=== PATIENT | male | born 1945 | race Caucasian/White ===

== ENCOUNTER 2017-06-26 13:46 | Inpatient (IN) | payer OTHER ==
[~2017-06-26] VITALS: Ht 175.3 cm; Wt 150.0 kg
[2017-06-26] MEDS ORDERED: SODIUM CHLORIDE 0.9% 500ML 500 ML IV STA (14:15)
[2017-06-26] MEDS ORDERED: OXYCODONE HCL IR 5 MG TAB (IMMEDIATE RELEASE) PO STA (14:15)
--- NOTE | 2017-06-26 14:18 | EMERGENCY ROOM VISIT NOTE ---
History Report prepared by Ernst: Duane Lyle Under the Supervision of: Dr. Jose Amos D.O. First contact with patient: 14:02 Chief Complaint: HEADACHE Stated Complaint: REVELES, CELLULITIS HX: 5 STENTS History of Present Illness The patient is a 71 year old male who presents to the Emergency Room with complaints of right lower extremity cellulitis that began this morning. He rates his burning sensation a 6/10 in severity. He noticed some burning and redness to his leg this morning. He is also experiencing a headache which is abnormal for him. He notes that last night he had some nausea and vomiting, but none today. He notes no change to his baseline chest pain and shortness of breath. He went to the [facility], told he had a fever and cellulitis , and was referred here. He has a past medical history of previous heart attacks , heart stents, cellulitis, HTN, GERD, hyperlipidemia, and gout. The last time he had cellulitis, it was treated with antibiotics. Source of History: patient Onset: this morning Position: leg (right) Symptom Intensity: 6/10 Quality: burning Timing: constant Associated Symptoms: + fevers, No chest pain, No SOB, No nausea, No vomiting Review of Systems See HPI for pertinent positives & negatives. A total of 10 systems reviewed and were otherwise negative. Past Medical & Surgical Medical Problems: (1) Atrial fibrillation with RVR (2) Cellulitis (3) Cellulitis (4) GERD (gastroesophageal reflux disease) (5) Gout (6) HLD (hyperlipidemia) (7) HTN (hypertension) Surgical Problems: (1) History of heart attack (2) Hx of heart artery stent Family History Omitted secondary to the patient's age. Social History Smoking Status: Never Smoker Smokeless Tobacco Use: No Drug Use: none Occupation Status: employed Current/Historical Medications Scheduled Allopurinol (Zyloprim), 100 MG PO QAM Aspirin (Aspirin Ec), 81 MG PO QAM Atorvastatin (Lipitor), 40 MG PO QAM Colchicine (Colcrys), 0.6 MG PO QAM Lisinopril (Zestril), 10 MG PO QAM Metoprolol Tartrate (Lopressor) (Lopressor), 50 MG PO BID Nitroglycerin (Nitrostat), 1 TAB SL UD Pantoprazole (Protonix), 40 MG PO QAM Probiotic Product (Probiotic), 4 TAB PO QAM Thiamine Hcl (Vitamin B-1), 100 MG PO QAM Miscellaneous Medications Furosemide (Lasix), 40 MG PO Warfarin Sod (Coumadin), 5 MG Allergies Coded Allergies: Ciprofloxacin (Verified Allergy, Intermediate, RASH, 06/26/17) Amoxicillin (Verified Allergy, Unknown, RASH, 06/26/17) Clavulanic Acid (Verified Allergy, Unknown, RASH, 06/26/17) Physical Exam Vital Signs Date Time Temp Pulse Resp B/P (MAP) Pulse Ox O2 Delivery O2 Flow Rate FiO2 06/26/17 17:33 92 18 145/91 95 Room Air 06/26/17 16:12 107 18 135/88 96 Room Air 06/26/17 14:49 107 06/26/17 13:59 37.4 106 20 125/79 96 Room Air Physical Exam GENERAL: Patient is awake, alert, and in no acute distress. Patient is resting comfortably and showing no signs of anxiety EYES: The conjunctivae are clear. The pupils are round and reactive. EARS, NOSE, MOUTH AND THROAT: The nose is without any evidence of any deformity. Mucous membranes are moist tongue is midline NECK: The neck is nontender and supple. RESPIRATORY: Lung sounds diminished to bilateral bases. No tachypnea or conversational dyspnea. CARDIOVASCULAR: Irregular rhythm to auscultation with no definite murmurs rubs or gallops normal S1 normal S2 GASTROINTESTINAL: The abdomen is soft. Bowel sounds are present in all quadrants. Abdomen is nontender MUSCULOSKELETAL/EXTREMITIES: There is no evidence of gross deformity full range of motion is noted in the hips and shoulders SKIN: Erythema and swelling to the RLE with the appearance of cellulitis. Pedal edema bilaterally, right greater than left. No calf tenderness elicited. There are no petechiae, pallor or cyanosis noted. NEUROLOGIC: Patient is awake alert and oriented x3 strength is symmetric patellar reflexes are 2+ bilaterally Medical Decision & Procedures ER Provider Diagnostic Interpretation: Radiology results as stated below per my review and radiologist interpretation: RIGHT LOWER EXTREMITY VENOUS DOPPLER CLINICAL HISTORY: Right lower extremity swelling. COMPARISON STUDY: No previous studies for comparison. TECHNIQUE: Sonography of the deep venous system of the right lower extremity was performed. Compression and augmentation were evaluated. FINDINGS: The right common femoral, superficial femoral and popliteal veins were compressible. Augmentation was normal. Flow was shown within the deep calf vessels although calf vessels were suboptimally assessed due to suboptimal penetration. IMPRESSION: No evidence of deep venous thrombus within the right lower extremity although calf vessels difficult to assess due to suboptimal penetration. Electronically signed by: Dawson Eckert M.D. 06/26/2017 3:53 PM Dictated Date/Time: 06/26/2017 3:[address] OF THE HEAD WITHOUT CONTRAST CLINICAL HISTORY: Headache. COMPARISON STUDY: No previous studies for comparison. CT DOSE: 1031.97 mGy.cm TECHNIQUE: Helical axial images of the head were obtained without IV contrast. Automated exposure control was utilized for the study. A dose lowering technique was utilized adhering to the principles of ALARA. FINDINGS: No acute intracranial hemorrhage, midline shift or mass effect is present. Ventricular system is unremarkable. Basilar cisterns are patent. This study is mildly compromised by motion artifact. There are no findings to suggest acute dural sinus thrombosis or acute territorial infarct. There are no significant calvarial abnormalities. Visualized portions of the sinuses and mastoid air cells are clear. IMPRESSION: 1. No acute intracranial findings. 2. Study mildly compromised by motion artifact. Electronically signed by: Dawson Eckert M.D. 06/26/2017 3:44 PM Dictated Date/Time: 06/26/2017 3:42 PM CHEST 2 VIEWS ROUTINE CLINICAL HISTORY: Fever. Sepsis. COMPARISON STUDY: No previous studies for comparison. FINDINGS: Lung volumes are normal. Lower mediastinal contour abnormality is nonspecific but favors a large hiatal hernia. There is no evidence of pulmonary edema. Right pleural opacity may reflect extrapleural fat. There is no evidence of pulmonary edema. Moderate enlargement of the cardiac silhouette is noted. IMPRESSION: 1. Lower mediastinal contour abnormality. While nonspecific, this statistically reflects a large lateral hernia. 2. Cardiomegaly without evidence of pulmonary edema. 3. No consolidation to suggest pneumonia. Electronically signed by: Dawson Eckert M.D. 06/26/2017 3:49 PM Dictated Date/Time: 06/26/2017 3:48 PM Laboratory Results 06/26/17 14:35 Red Blood Count 4.75, Mean Corpuscular Volume 83.4, Mean Corpuscular Hemoglobin 27.6, Mean Corpuscular Hemoglobin Concent 33.1, Mean Platelet Volume 10.7, Neutrophils (%) (Auto) 91.8, Lymphocytes (%) (Auto) 1.9, Monocytes (%) (Auto) 5.8, Eosinophils (%) (Auto) 0.0, Basophils (%) (Auto) 0.1, Neutrophils # (Auto) 22.67, Lymphocytes # (Auto) 0.48, Monocytes # (Auto) 1.44, Eosinophils # (Auto) 0.00, Basophils # (Auto) 0.02 06/26/17 14:35 Test 06/26/17 14:35 06/26/17 14:46 06/26/17 15:09 White Blood Count 24.72 K/uL (4.8-10.8) Red Blood Count 4.75 M/uL (4.7-6.1) Hemoglobin 13.1 g/dL (14.0-18.0) Hematocrit 39.6 % (42-52) Mean Corpuscular Volume 83.4 fL (80-100) Mean Corpuscular Hemoglobin 27.6 pg (25-34) Mean Corpuscular Hemoglobin Concent 33.1 g/dl (32-36) Platelet Count 217 K/uL (130-400) Mean Platelet Volume 10.7 fL (7.4-10.4) Neutrophils (%) (Auto) 91.8 % Lymphocytes (%) (Auto) 1.9 % Monocytes (%) (Auto) 5.8 % Eosinophils (%) (Auto) 0.0 % Basophils (%) (Auto) 0.1 % Neutrophils # (Auto) 22.67 K/uL (1.4-6.5) Lymphocytes # (Auto) 0.48 K/uL (1.2-3.4) Monocytes # (Auto) 1.44 K/uL (0.11-0.59) Eosinophils # (Auto) 0.00 K/uL (0-0.5) Basophils # (Auto) 0.02 K/uL (0-0.2) RDW Standard Deviation 52.5 fL (36.4-46.3) RDW Coefficient of Variation 17.1 % (11.5-14.5) Immature Granulocyte % (Auto) 0.4 % Immature Granulocyte # (Auto) 0.11 K/uL (0.00-0.02) Red Blood Cell Morphology Unremarkable Erythrocyte Sedimentation Rate 46 mm/hr (0-14) Prothrombin Time 34.6 SECONDS (9.0-12.0) Prothromb Time International Ratio 3.1 (0.9-1.1) Activated Partial Thromboplast Time 39.9 SECONDS (21.0-31.0) Partial Thromboplastin Ratio 1.5 Anion Gap 7.0 mmol/L (3-11) Est Creatinine Clear Calc Drug Dose 70.1 ml/min Estimated GFR () 58.2 Estimated GFR (Non- 50.2 BUN/Creatinine Ratio 17.1 (10-20) Calcium Level 9.2 mg/dl (8.5-10.1) Total Bilirubin 0.9 mg/dl (0.2-1) Direct Bilirubin 0.2 mg/dl (0-0.2) Aspartate Amino Transf (AST/SGOT) 18 U/L (15-37) Alanine Aminotransferase (ALT/SGPT) 23 U/L (12-78) Alkaline Phosphatase 143 U/L (45-117) Troponin I < 0.015 ng/ml (0-0.045) C-Reactive Protein 6.98 mg/dl (0-0.29) Total Protein 7.8 gm/dl (6.4-8.2) Albumin 3.6 gm/dl (3.4-5.0) Bedside Lactic Acid Venous 2.58 mmol/L (0.90-1.70) Urine Color YELLOW Urine Appearance CLEAR (CLEAR) Urine pH 5.5 (4.5-7.5) Urine Specific Brinson 1.012 (1.000-1.030) Urine Protein NEG (NEG) Urine Glucose (UA) NEG (NEG) Urine Ketones NEG (NEG) Urine Occult Blood 2+ (NEG) Urine Nitrite NEG (NEG) Urine Bilirubin NEG (NEG) Urine Urobilinogen NEG (NEG) Urine Leukocyte Esterase NEG (NEG) Urine WBC (Auto) 0 /hpf (0-5) Urine RBC (Auto) 5-10 /hpf (0-4) Urine Hyaline Casts (Auto) 0 /lpf (0-5) Urine Epithelial Cells (Auto) 0-5 /lpf (0-5) Urine Bacteria (Auto) NEG (NEG) Laboratory results per my review. Medications Administered Medications (Trade) Dose Ordered Sig/Alexa Route Start Time Stop Time Status Last Admin Dose Admin Oxycodone HCl (Roxicodone Immediate Rel Tab) 5 mg NOW STAT PO 06/26/17 14:15 8/19/17 14:17 DC 06/26/17 14:40 5 MG Sodium Chloride 500 ml @ 999 mls/hr Q31M STAT IV 06/26/17 14:15 06/26/17 14:45 DC 06/26/17 14:42 999 MLS/HR Ceftriaxone Sodium (Rocephin Inj) 1 gm NOW STAT IV 06/26/17 15:35 06/26/17 15:36 DC 06/26/17 16:15 1 GM ECG Indication: other (Infection) Rate (beats per minute): 106 Rhythm: atrial fibrillation Findings: other (No PVCs or acute STS) Comparison ECG Date: no prior available ED Course 1402: The patient was evaluated in room C3. A complete history and physical examination were performed. 1415: Ordered NSS 500 ml @ 999 mls/hr IV, Oxycodone HCl 5 mg PO 1535: Ordered Rocephin Inj 1 gm IV 1700: Upon reevaluation, the patient is resting. I discussed results and treatment plan with him. He verbalizes agreement and understanding. [facility] The patient will be evaluated for further management and care. Medical Decision Differential diagnosis: Etiologies such as cellulitis, abscess, MRSA infection, DVT, necrotizing fasciitis, dermatitis, drug eruption, as well as others were entertained.. Nursing notes reviewed. The patient is a 71-year-old male who presented to the emergency department for an evaluation of right lower extremity swelling and redness. The patient's physical exam appears to be consistent with cellulitis. He has had cellulitis in the past. He was also found have an elevated white blood cell count as well as increased inflammatory markers. The patient was treated with IV fluids and IV antibiotics in emergency department. He was also given pain medication. I discussed patient's laboratory and radiographic studies with him. I also discussed this [facility] They've agreed to evaluate the patient in the emergency department for further management and disposition. Medication Reconcilliation Current Medication List: was personally reviewed by me Blood Pressure Screening Patient's blood pressure: Normal blood pressure Blood pressure disposition: Did not require urgent referral Consults Time Called: 1655 Consulting Physician: [facility]. Lopez [facility] Returned Call: 1700 I discussed the patient's case with him. The patient will be evaluated for further management. Impression Primary Impression: Cellulitis of right lower extremity Additional Impression: Atrial fibrillation Scribe Attestation The scribe's documentation has been prepared under my direction and personally reviewed by me in its entirety. I confirm that the note above accurately reflects all work, treatment, procedures, and medical decision making performed by me. Departure Information Dispostion Being Evaluated By Hospitalist Prescriptions Metoprolol Tartrate (Lopressor) (Lopressor) 25 Mg Tab 50 MG PO BID for 30 Days, #120 TAB Prov: Tono Lopez, DO 06/26/17 Referrals No Doctor, Assigned (PCP) Patient Instructions My [facility] Problem Qualifiers Additional Impression: Atrial fibrillation Atrial fibrillation type: unspecified Qualified Codes: I48.91 - Unspecified atrial fibrillation
[2017-06-26 15:00] LABS: HEMATOCRIT 39.6 % (42-52); MEAN CELL VOLUME 83.4 fL (80-100); MEAN CORPUSCULAR HEMOGLOBIN 27.6 pg (25-34); MEAN CORPUSCULAR HGB CONC 33.1 g/dl (32-36); MEAN PLATELET VOLUME 10.7 fL (7.4-10.4); PLATELET COUNT 217 K/uL (130-400); RED BLOOD COUNT 4.75 M/uL (4.7-6.1); WHITE BLOOD COUNT 24.72 K/uL (4.8-10.8)
[2017-06-26 15:08] LABS: INR 3.1 (0.9-1.1); PARTIAL THROMBOPLASTIN RATIO 1.5; PROTHROMBIN TIME (PATIENT) 34.6 SECONDS (9.0-12.0)
[2017-06-26 15:17] LABS: BLOOD UREA NITROGEN 24 mg/dl (7-18); GLUCOSE 113 mg/dl (70-99)
[2017-06-26 15:18] LABS: ALT/SGPT 23 U/L (12-78); BUN/CREATININE RATIO 17.1 (10-20); C-REACTIVE PROTEIN 6.98 mg/dl (0-0.29); CALCIUM 9.2 mg/dl (8.5-10.1); CARBON DIOXIDE 27 mmol/L (21-32); CHLORIDE 101 mmol/L (98-107); SODIUM 135 mmol/L (136-145)
[2017-06-26 15:22] LABS: ALKALINE PHOSPHATASE 143 U/L (45-117); AST/SGOT 18 U/L (15-37)
[2017-06-26 15:23] LABS: URINE APPEARANCE CLEAR (CLEAR); URINE BILIRUBIN NEG (NEG); URINE COLOR YELLOW; URINE EPITHELIAL CELL AUTO 0-5 /lpf (0-5); URINE NITRITE NEG (NEG); URINE PH 5.5 (4.5-7.5); URINE SPECIFIC GRAVITY 1.012 (1.000-1.030); UROBILINOGEN NEG (NEG)
[2017-06-26 15:25] LABS: MANUAL MICROSCOPIC REQUIRED? NO; REVIEW REQ? NO
[2017-06-26] MEDS ORDERED: ALLO100T PO (15:29)
[2017-06-26] MEDS ORDERED: METO25TA56 PO ×2 (15:29→17:19)
[2017-06-26] MEDS ORDERED: ATOR-24 PO (15:29)
[2017-06-26] MEDS ORDERED: THIA100T11 PO (15:29)
[2017-06-26] MEDS ORDERED: PANT40TA PO (15:29)
[2017-06-26] MEDS ORDERED: ASPI81TA28 PO (15:29)
[2017-06-26] MEDS ORDERED: CLC6 PO (15:29)
[2017-06-26] MEDS ORDERED: LISI-729 PO (15:29)
[2017-06-26] MEDS ORDERED: MISCCAP80 PO (15:29)
[2017-06-26 15:33] LABS: BASO % 0.1 %; BASO ABS # 0.02 K/uL (0-0.2); COMPLETE YES; IG% 0.4 %; LYMPH % 1.9 %; LYMPH ABS # 0.48 K/uL (1.2-3.4); MONO % 5.8 %; NEUT % 91.8 %
[2017-06-26] MEDS ORDERED: CEFTRIAXONE SOD INJ 1 GM ADDVIAL IV STA (15:35)
--- NOTE | 2017-06-26 15:45 | DIAGNOSTIC IMAGING REPORT ---
CT OF THE HEAD WITHOUT CONTRAST CLINICAL HISTORY: Headache. COMPARISON STUDY: No previous studies for comparison. CT DOSE: 1031.97 mGy.cm TECHNIQUE: Helical axial images of the head were obtained without IV contrast. Automated exposure control was utilized for the study. A dose lowering technique was utilized adhering to the principles of ALARA. FINDINGS: No acute intracranial hemorrhage, midline shift or mass effect is present. Ventricular system is unremarkable. Basilar cisterns are patent. This study is mildly compromised by motion artifact. There are no findings to suggest acute dural sinus thrombosis or acute territorial infarct. There are no significant calvarial abnormalities. Visualized portions of the sinuses and mastoid air cells are clear. IMPRESSION: 1. No acute intracranial findings. 2. Study mildly compromised by motion artifact. Electronically signed by: Dawson Eckert M.D. 06/26/2017 3:44 PM Dictated Date/Time: 06/26/2017 3:42 PM
--- NOTE | 2017-06-26 15:51 | DIAGNOSTIC IMAGING REPORT ---
CHEST 2 VIEWS ROUTINE CLINICAL HISTORY: Fever. Sepsis. COMPARISON STUDY: No previous studies for comparison. FINDINGS: Lung volumes are normal. Lower mediastinal contour abnormality is nonspecific but favors a large hiatal hernia. There is no evidence of pulmonary edema. Right pleural opacity may reflect extrapleural fat. There is no evidence of pulmonary edema. Moderate enlargement of the cardiac silhouette is noted. IMPRESSION: 1. Lower mediastinal contour abnormality. While nonspecific, this statistically reflects a large lateral hernia. 2. Cardiomegaly without evidence of pulmonary edema. 3. No consolidation to suggest pneumonia. Electronically signed by: Dawson Eckert M.D. 06/26/2017 3:49 PM Dictated Date/Time: 06/26/2017 3:48 PM
--- NOTE | 2017-06-26 15:54 | DIAGNOSTIC IMAGING REPORT ---
RIGHT LOWER EXTREMITY VENOUS DOPPLER CLINICAL HISTORY: Right lower extremity swelling. COMPARISON STUDY: No previous studies for comparison. TECHNIQUE: Sonography of the deep venous system of the right lower extremity was performed. Compression and augmentation were evaluated. FINDINGS: The right common femoral, superficial femoral and popliteal veins were compressible. Augmentation was normal. Flow was shown within the deep calf vessels although calf vessels were suboptimally assessed due to suboptimal penetration. IMPRESSION: No evidence of deep venous thrombus within the right lower extremity although calf vessels difficult to assess due to suboptimal penetration. Electronically signed by: Dawson Eckert M.D. 06/26/2017 3:53 PM Dictated Date/Time: 06/26/2017 3:52 PM
[2017-06-26] MEDS ORDERED: NTRSLP4 SL (17:19)
[2017-06-26] MEDS ORDERED: FRS/40 PO (17:19)
[2017-06-26] MEDS ORDERED: CMD5 (17:19)
[2017-06-26] MEDS ORDERED: METOPROLOL TARTRATE 1 MG/ML VIAL IV STA (17:21)
[2017-06-26] MEDS ORDERED: NITROGLYCERIN 0.4 MG SL PER TAB CHARGE SL PRN (17:45)
[2017-06-26] MEDS ORDERED: ACETAMINOPHEN 325 MG TAB PO PRN (17:45)
[2017-06-26] MEDS ORDERED: MAGNESIUM HYDROXIDE SUSP 30 ML UDC PO PRN (17:45)
[2017-06-26] MEDS ORDERED: POLYETHYLENE (MIRALAX) 17 GM PACK PO PRN (17:45)
[2017-06-26] MEDS ORDERED: ONDANSETRON INJ 2 MG/ML 2 ML VIAL IV PRN (17:45)
[2017-06-26] MEDS ORDERED: ALUMINUM/MAGNESIUM/SIMETH (MAALOX MAX) 30 ML UDC PO PRN (17:45)
[2017-06-26 18:00] VITALS: O2SAT 95; Ht 175.3 cm; Wt 150.0 kg
--- NOTE | 2017-06-26 18:15 | History and Physical ---
History & Physical Date & Time of Service: Jun 26, 2017 at 17:51 Chief Complaint: [place], Cellulitis Hx: 5 Stents Primary Care Physician: No Doctor, Assigned History of Present Illness Source: patient, family, clinic records, hospital records This is a 71 year old male with a PMH of morbid obesity, CAD s/p stents, atrial fibrillation on long-term anticoagulation, recurrent cellulitis, HTN, HLD, gout - presents with worsening RLE pain, redness, swelling. States he was at the [facility] today; and was in his usual state of health; he noted some swelling in his R lower extremity - as per , he had a cut in the past, which had been healing. He has had recurrent cellulitis in the past and he knew that this was very similar to those episodes. He presented here and had significant erythema, redness, warmth to touch. Noted to have A. fib on monitor - states he does not recall being told he had this, but he is on Coumadin. States he's had stents placed in the past ( states he had three, patient states he's had five stents). +fevers at the [facility] tent. Was given some fluids and Rocephin in the ER. Past Medical/Surgical History Medical Problems: (1) Cellulitis Status: Resolved (2) GERD (gastroesophageal reflux disease) Status: Chronic (3) Gout Status: Resolved (4) HLD (hyperlipidemia) Status: Chronic (5) HTN (hypertension) Status: Chronic Surgical Problems: (1) History of heart attack Status: Resolved (2) Hx of heart artery stent Status: Resolved Social History Smoking Status: Never Smoker Smokeless Tobacco Use: No Drug Use: none Occupational Status: employed Allergies Coded Allergies: Ciprofloxacin (Verified Allergy, Intermediate, RASH, 06/26/17) Amoxicillin (Verified Allergy, Unknown, RASH, 06/26/17) Clavulanic Acid (Verified Allergy, Unknown, RASH, 06/26/17) Home Medications Scheduled Allopurinol (Zyloprim), 100 MG PO QAM Aspirin (Aspirin Ec), 81 MG PO QAM Atorvastatin (Lipitor), 40 MG PO QAM Colchicine (Colcrys), 0.6 MG PO QAM Lisinopril (Zestril), 10 MG PO QAM Metoprolol Tartrate (Lopressor) (Lopressor), 50 MG PO BID Nitroglycerin (Nitrostat), 1 TAB SL UD Pantoprazole (Protonix), 40 MG PO QAM Probiotic Product (Probiotic), 4 TAB PO QAM Thiamine Hcl (Vitamin B-1), 100 MG PO QAM Miscellaneous Medications Furosemide (Lasix), 40 MG PO Warfarin Sod (Coumadin), 5 MG Review of Systems Constitutional: + fever, No chills, No sweats, No weight loss, No weakness, No fatigue Respiratory: + shortness of breath (chronic), No cough, No sputum, No dyspnea on exertion Cardiovascular: + edema, No chest pain, No palpitations Abdomen: No pain, No nausea, No vomiting, No diarrhea, No constipation, No GI bleeding Musculoskeletal: + swelling (lower extremity swelling, pain) Genitourinary - Male: No hematuria, No dysuria, No urinary frequency, No urinary urgency, No urinary hesitancy, No urinary retention Neurologic: No numbness/tingling, No vertigo Psychiatric: No depression symptoms, No anxiety, No insomnia Hematologic / Lymphatic: No abnormal bleeding/bruising Integumentary: + problem reported (redness of RLE) Allergic / Immunologic: No environmental allergies, No seasonal allergies Physical Exam Vital Signs Date Time Temp Pulse Resp B/P (MAP) Pulse Ox O2 Delivery O2 Flow Rate FiO2 06/26/17 17:33 92 18 145/91 95 Room Air 06/26/17 16:12 107 18 135/88 96 Room Air 06/26/17 14:49 107 06/26/17 13:59 37.4 106 20 125/79 96 Room Air General Appearance: no apparent distress, + obese (morbid obesity) Head: normocephalic, atraumatic Eyes: normal inspection Respiratory/Chest: chest non-tender, lungs clear, normal breath sounds, no respiratory distress, no accessory muscle use Cardiovascular: no murmur, + irregularly irregular Abdomen/GI: normal bowel sounds, non tender, soft, + pertinent finding (+obese) Extremities/Musculoskelatal: + swelling, + pertinent finding (swelling, erythematous, edematous, RLE; warm to touch, tender to touch) Neurologic/Psych: no motor/sensory deficits, alert, normal mood/affect Diagnostics Laboratory Results Results Past 24 Hours Test 06/26/17 14:35 06/26/17 14:46 06/26/17 15:09 06/26/17 17:43 Range/Units White Blood Count 24.72 4.8-10.8 K/uL Red Blood Count 4.75 4.7-6.1 M/uL Hemoglobin 13.1 14.0-18.0 g/dL Hematocrit 39.6 42-52 % Mean Corpuscular Volume 83.4 80-100 fL Mean Corpuscular Hemoglobin 27.6 25-34 pg Mean Corpuscular Hemoglobin Concent 33.1 32-36 g/dl Platelet Count 217 130-400 K/uL Mean Platelet Volume 10.7 7.4-10.4 fL Neutrophils (%) (Auto) 91.8 % Lymphocytes (%) (Auto) 1.9 % Monocytes (%) (Auto) 5.8 % Eosinophils (%) (Auto) 0.0 % Basophils (%) (Auto) 0.1 % Neutrophils # (Auto) 22.67 1.4-6.5 K/uL Lymphocytes # (Auto) 0.48 1.2-3.4 K/uL Monocytes # (Auto) 1.44 0.11-0.59 K/uL Eosinophils # (Auto) 0.00 0-0.5 K/uL Basophils # (Auto) 0.02 0-0.2 K/uL RDW Standard Deviation 52.5 36.4-46.3 fL RDW Coefficient of Variation 17.1 11.5-14.5 % Immature Granulocyte % (Auto) 0.4 % Immature Granulocyte # (Auto) 0.11 0.00-0.02 K/uL Red Blood Cell Morphology Unremarkable Erythrocyte Sedimentation Rate 46 0-14 mm/hr Prothrombin Time 34.6 9.0-12.0 SECONDS Prothromb Time International Ratio 3.1 0.9-1.1 Activated Partial Thromboplast Time 39.9 21.0-31.0 SECONDS Partial Thromboplastin Ratio 1.5 Sodium Level 135 136-145 mmol/L Potassium Level 4.0 3.5-5.1 mmol/L Chloride Level 101 98-107 mmol/L Carbon Dioxide Level 27 21-32 mmol/L Anion Gap 7.0 3-11 mmol/L Blood Urea Nitrogen 24 7-18 mg/dl Creatinine 1.40 0.60-1.40 mg/dl Est Creatinine Clear Calc Drug Dose 70.1 ml/min Estimated GFR () 58.2 Estimated GFR (Non- 50.2 BUN/Creatinine Ratio 17.1 10-20 Random Glucose 113 70-99 mg/dl Calcium Level 9.2 8.5-10.1 mg/dl Total Bilirubin 0.9 0.2-1 mg/dl Direct Bilirubin 0.2 0-0.2 mg/dl Aspartate Amino Transf (AST/SGOT) 18 15-37 U/L Alanine Aminotransferase (ALT/SGPT) 23 12-78 U/L Alkaline Phosphatase 143 45-117 U/L Troponin I < 0.015 0-0.045 ng/ml C-Reactive Protein 6.98 0-0.29 mg/dl Total Protein 7.8 6.4-8.2 gm/dl Albumin 3.6 3.4-5.0 gm/dl Bedside Lactic Acid Venous 2.58 0.90-1.70 mmol/L Urine Color YELLOW Urine Appearance CLEAR CLEAR Urine pH 5.5 4.5-7.5 Urine Specific [place] 1.012 1.000-1.030 Urine Protein NEG NEG Urine Glucose (UA) NEG NEG Urine Ketones NEG NEG Urine Occult Blood 2+ NEG Urine Nitrite NEG NEG Urine Bilirubin NEG NEG Urine Urobilinogen NEG NEG Urine Leukocyte Esterase NEG NEG Urine WBC (Auto) 0 0-5 /hpf Urine RBC (Auto) 5-10 0-4 /hpf Urine Hyaline Casts (Auto) 0 0-5 /lpf Urine Epithelial Cells (Auto) 0-5 0-5 /lpf Urine Bacteria (Auto) NEG NEG Test 06/26/17 17:44 Range/Units Microbiology Results 06/26/17 Blood Culture, Received Pending 06/26/17 Blood Culture, Received Pending Diagnostic Radiology RIGHT LOWER EXTREMITY VENOUS DOPPLER CLINICAL HISTORY: Right lower extremity swelling. COMPARISON STUDY: No previous studies for comparison. TECHNIQUE: Sonography of the deep venous system of the right lower extremity was performed. Compression and augmentation were evaluated. FINDINGS: The right common femoral, superficial femoral and popliteal veins were compressible. Augmentation was normal. Flow was shown within the deep calf vessels although calf vessels were suboptimally assessed due to suboptimal penetration. IMPRESSION: No evidence of deep venous thrombus within the right lower extremity although calf vessels difficult to assess due to suboptimal penetration CT OF THE HEAD WITHOUT CONTRAST CLINICAL HISTORY: Headache. COMPARISON STUDY: No previous studies for comparison. CT DOSE: 1031.97 mGy.cm TECHNIQUE: Helical axial images of the head were obtained without IV contrast. Automated exposure control was utilized for the study. A dose lowering technique was utilized adhering to the principles of ALARA. FINDINGS: No acute intracranial hemorrhage, midline shift or mass effect is present. Ventricular system is unremarkable. Basilar cisterns are patent. This study is mildly compromised by motion artifact. There are no findings to suggest acute dural sinus thrombosis or acute territorial infarct. There are no significant calvarial abnormalities. Visualized portions of the sinuses and mastoid air cells are clear. IMPRESSION: 1. No acute intracranial findings. 2. Study mildly compromised by motion artifact. CHEST 2 VIEWS ROUTINE CLINICAL HISTORY: Fever. Sepsis. COMPARISON STUDY: No previous studies for comparison. FINDINGS: Lung volumes are normal. Lower mediastinal contour abnormality is nonspecific but favors a large hiatal hernia. There is no evidence of pulmonary edema. Right pleural opacity may reflect extrapleural fat. There is no evidence of pulmonary edema. Moderate enlargement of the cardiac silhouette is noted. IMPRESSION: 1. Lower mediastinal contour abnormality. While nonspecific, this statistically reflects a large lateral hernia. 2. Cardiomegaly without evidence of pulmonary edema. 3. No consolidation to suggest pneumonia. EKG Atrial fibrillation with rapid ventricular response Incomplete right bundle branch block Impression Assessment and Plan This is a 71 year old male with a PMH of morbid obesity, CAD s/p stents, atrial fibrillation on long-term anticoagulation, recurrent cellulitis, HTN, HLD, gout - presents with worsening RLE pain, redness, swelling Sepsis secondary to Recurrent Cellulitis patient has had cellulitis about 7-8 times R LE with warmth, redness, swelling will humberto area start Vancomycin blood cultures pending no open wounds for cultures hold Lasix due to dehydration WBC elevated >20k, lactic acid >2, tachycardia - meets sepsis criteria given fluid bolus in the ER, will recheck lactic acid, hold further IVFs to prevent overload A. Fib with RVR new onset? patient unaware of this diagnosis in the past he has been on Coumadin; states he thinks it was for his heart attacks HIM information request for further information will continue metoprolol; his HRs are improving with fluid bolus Metoprolol 50mg BID hold Coumadin for one day; INR slightly elevated at 3.1 monitor in tele recheck EKG in AM CAD s/p stents, unsure if three or [address] st[address], no chest pain, initial enzymes negative, no acute issues continue aspirin, statin, b-heike DVT ppx Coumadin FULL CODE VTE Prophylaxis VTE Risk Assessment Done? Y/N: Yes Risk Level: Moderate Given or contraindicated: Warfarin (Coumadin)
[2017-06-26 18:20] VITALS: BP 116/60; PULSE 109; TEMP 37.1; O2SAT 94
[2017-06-26] MEDS ORDERED: VANCOMYCIN CONSULT ACTIVE PRN (20:30)
[2017-06-26] MEDS ORDERED: SODIUM CHLORIDE 0.9% 1000ML 1,000 ML IV ONE (20:45)
[2017-06-26] MEDS ORDERED: VANCOMYCIN INJ 2,750 MG in SODIUM CHLORIDE 0.9% 500ML 500 ML IV SCH (21:00)
[2017-06-26] MEDS: METOPROLOL TARTRATE 50 MG TAB PO SCH (21:36)
--- NOTE | 2017-06-26 22:33 | Pharmacy Progress Note ---
Pharmacy Abx Initial Consult Date of Service Jun 26, 2017. Pharmacy Dosing Scope Date of Consult: 06/26/17 Consultation requested by: Dr. Lopez Pharmacy is consulted to initiate Vancomycin IV dosing therapy, order appropriate labs and adjust drug dose/frequency. Subjective The patient is a 71 year old male admitted on Jun 26, 2017 at 17:42. Objective Height (Feet): 5 Height (Inches): 9.00 Weight (Kilograms): 150.000 Vital Signs (Past 12Hrs) Vital Signs Past 12 Hours Date Time Temp Pulse Resp B/P (MAP) Pulse Ox O2 Delivery O2 Flow Rate FiO2 06/26/17 18:20 37.1 109 18 116/60 (78) 94 Room Air 06/26/17 18:00 95 Room Air 06/26/17 17:33 92 18 145/91 95 Room Air 06/26/17 16:12 107 18 135/88 96 Room Air 06/26/17 14:49 107 06/26/17 13:59 37.4 106 20 125/79 96 Room Air Lab Results (24Hrs) Laboratory Tests (24 Hours) Test 06/26/17 14:35 06/26/17 19:04 C-Reactive Protein 6.98 mg/dl (0-0.29) H Erythrocyte Sedimentation Rate 46 mm/hr (0-14) H White Blood Count 24.72 K/uL (4.8-10.8) H Red Blood Count 4.75 M/uL (4.7-6.1) Hemoglobin 13.1 g/dL (14.0-18.0) L Hematocrit 39.6 % (42-52) L Mean Corpuscular Volume 83.4 fL (80-100) Mean Corpuscular Hemoglobin 27.6 pg (25-34) Mean Corpuscular Hemoglobin Concent 33.1 g/dl (32-36) Platelet Count 217 K/uL (130-400) Mean Platelet Volume 10.7 fL (7.4-10.4) H Neutrophils (%) (Auto) 91.8 % Lymphocytes (%) (Auto) 1.9 % Monocytes (%) (Auto) 5.8 % Eosinophils (%) (Auto) 0.0 % Basophils (%) (Auto) 0.1 % Neutrophils # (Auto) 22.67 K/uL (1.4-6.5) H Lymphocytes # (Auto) 0.48 K/uL (1.2-3.4) L Monocytes # (Auto) 1.44 K/uL (0.11-0.59) H Eosinophils # (Auto) 0.00 K/uL (0-0.5) Basophils # (Auto) 0.02 K/uL (0-0.2) Lactic Acid Level 2.1 mmol/L (0.4-2.0) *H Micro Results Date/Time Source Procedure Growth Status 06/26/17 14:50 Blood Blood Culture Pending Received 06/26/17 14:35 Blood Blood Culture Pending Received Assessment & Plan Assessment 71 year old male with cellulitis, sepsis. Plan Vancomycin for treatment of Cellulitis, Sepsis. Vancomycin IV * Loading dose: 2750 mg (18 mg/kg) * Maintenance dose: 2250 mg IV (15 mg/kg) every 14 hours * Goal trough level for Sepsis: 15 to 20 mcg/mL * Trough Vanco level ordered for 06/28/17 before dose at 1400. Pharmacy will continue to follow and will adjust dose/frequency as necessary. Thank you.
[2017-06-27] VITALS: BP 121/83; PULSE 95; TEMP 36.6; O2SAT 96
[2017-06-27 04:00] VITALS: BP 98/60; PULSE 86; TEMP 36.6; O2SAT 96
[2017-06-27 06:30] LABS: PROTHROMBIN TIME (PATIENT) 22.1 SECONDS (9.0-12.0)
[2017-06-27 06:42] LABS: BUN/CREATININE RATIO 17.3 (10-20); CALCIUM 8.4 mg/dl (8.5-10.1); CREATININE 1.2 mg/dl (0.60-1.40); POTASSIUM 3.8 mmol/L (3.5-5.1)
[2017-06-27 06:52] LABS: THYROID STIMULATING HORMONE 0.438 uIu/ml (0.300-4.500)
[2017-06-27 07:11] LABS: HEMATOCRIT 33.9 % (42-52); MEAN CELL VOLUME 83.1 fL (80-100); MEAN CORPUSCULAR HEMOGLOBIN 27.2 pg (25-34); MEAN CORPUSCULAR HGB CONC 32.7 g/dl (32-36); MEAN PLATELET VOLUME 10.4 fL (7.4-10.4); PLATELET COUNT 159 K/uL (130-400); RED BLOOD COUNT 4.08 M/uL (4.7-6.1)
[2017-06-27 07:33] VITALS: BP 115/78; PULSE 79; TEMP 36.7; O2SAT 94
[2017-06-27] MEDS: ATORVASTATIN 40 MG TAB PO SCH (07:45)
[2017-06-27] MEDS: PANTOprazole SOD 40 MG TAB PO SCH (07:45)
[2017-06-27] MEDS: THIAMINE HCL 100 MG TAB PO SCH (07:45)
[2017-06-27] MEDS: METOPROLOL TARTRATE 50 MG TAB PO SCH ×2 (07:45→20:49)
[2017-06-27] MEDS: ASPIRIN 81 MG ECTAB PO SCH (07:46)
[2017-06-27] MEDS: LISINOPRIL 10 MG TAB PO SCH (07:46)
[2017-06-27] MEDS ORDERED: ASPIRIN 81 MG ECTAB PO SCH (09:00)
--- NOTE | 2017-06-27 09:33 | Progress Note ---
Subjective Date of Service: Jun 27, 2017. Subjective Pt evaluation today including: conversation w/ patient, conversation w/ family , physical exam, lab review, review of studies, review of inpatient medication list Saw/examined the patient in room 204 He's doing well, pain in the R LE is improving slightly no chest pain c/o shortness of breath Problem List Medical Problems: (1) Atrial fibrillation Status: Acute (2) Cellulitis of right lower extremity Status: Acute Review of Systems Constitutional: No fever, No chills, No weakness Respiratory: + shortness of breath, + dyspnea on exertion, + dyspnea at rest, No cough, No sputum, No wheezing, No hemoptysis Cardiac: + orthopnea, + PND, No chest pain, No edema, No palpitations Abdomen: No pain, No nausea, No vomiting, No diarrhea Musculoskeletal: + muscle pain, + swelling Male : No dysuria, No urinary frequency Heme: No abnormal bleeding/bruising Medications Current Inpatient Medications Medications (Trade) Dose Ordered Sig/Alexa Route Start Time Stop Time Status Last Admin Dose Admin Vancomycin HCl 2250 mg/Sodium Chloride 545 ml @ 200 mls/hr Q14H IV 06/27/17 10:00 07/07/17 09:59 Acetaminophen (Tylenol Tab) 650 mg Q4H PRN PO 06/26/17 17:45 07/26/17 17:44 Al Hydrox/Mg Hydrox/Simethicone (Maalox Max Susp) 15 ml Q4H PRN PO 06/26/17 17:45 07/26/17 17:44 Magnesium Hydroxide (Milk Of Magnesia Susp) 30 ml Q12H PRN PO 06/26/17 17:45 07/26/17 17:44 Ondansetron HCl (Zofran Inj) 4 mg Q6H PRN IV 06/26/17 17:45 07/26/17 17:44 Nitroglycerin (Nitrostat Tab) 0.4 mg UD PRN SL 06/26/17 17:45 07/26/17 17:44 Polyethylene (Miralax Powder Packet) 17 gm DAILY PRN PO 06/26/17 17:45 07/26/17 17:44 Aspirin (Ecotrin Tab) 81 mg QAM PO 06/27/17 09:00 07/27/17 08:59 06/27/17 07:46 81 MG Atorvastatin Calcium (Lipitor Tab) 40 mg QAM PO 06/27/17 09:00 07/27/17 08:59 06/27/17 07:45 40 MG Lisinopril (Zestril Tab) 10 mg QAM PO 06/27/17 09:00 07/27/17 08:59 06/27/17 07:46 10 MG Metoprolol Tartrate (Lopressor Tab) 50 mg BID PO 06/26/17 21:00 07/26/17 20:59 06/27/17 07:45 50 MG Pantoprazole Sodium (Protonix Tab) 40 mg QAM PO 06/27/17 09:00 07/27/17 08:59 06/27/17 07:45 40 MG Thiamine HCl (Vitamin B-1 Tab) 100 mg QAM PO 06/27/17 09:00 07/27/17 08:59 06/27/17 07:45 100 MG Vancomycin HCl (Consult) 1 ea UD PRN N/A 06/26/17 20:30 07/26/17 20:29 Warfarin Sodium (Coumadin Tab) 5 mg DAILY@16 PO 06/27/17 16:00 07/27/17 15:59 Objective Vital Signs Date Time Temp Pulse Resp B/P (MAP) Pulse Ox O2 Delivery O2 Flow Rate FiO2 06/27/17 07:33 36.7 79 19 115/78 (90) 94 Room Air 06/27/17 04:00 Room Air 06/27/17 04:00 36.6 86 20 98/60 (73) 96 Room Air 06/27/17 00:00 36.6 95 20 121/83 (96) 96 Room Air 06/27/17 00:00 Room Air 06/26/17 20:00 Room Air 06/26/17 18:20 37.1 109 18 116/60 (78) 94 Room Air 06/26/17 18:00 95 Room Air 06/26/17 17:33 92 18 145/91 95 Room Air 06/26/17 16:12 107 18 135/88 96 Room Air 06/26/17 14:49 107 06/26/17 13:59 37.4 106 20 125/79 96 Room Air Physical Exam General Appearance: no apparent distress, + obese Respiratory/Chest: chest non-tender, lungs clear, normal breath sounds, no respiratory distress, no accessory muscle use Cardiovascular: no murmur, + irregularly irregular Extremities: + pertinent finding (R LE swelling, erythema, edema, warm to touch , tender to palpation - slight decrease in discoloration) Laboratory Results Last 24 Hours Test 06/26/17 14:35 06/26/17 14:46 06/26/17 15:09 06/26/17 19:04 White Blood Count 24.72 K/uL Red Blood Count 4.75 M/uL Hemoglobin 13.1 g/dL Hematocrit 39.6 % Mean Corpuscular Volume 83.4 fL Mean Corpuscular Hemoglobin 27.6 pg Mean Corpuscular Hemoglobin Concent 33.1 g/dl Platelet Count 217 K/uL Mean Platelet Volume 10.7 fL Neutrophils (%) (Auto) 91.8 % Lymphocytes (%) (Auto) 1.9 % Monocytes (%) (Auto) 5.8 % Eosinophils (%) (Auto) 0.0 % Basophils (%) (Auto) 0.1 % Neutrophils # (Auto) 22.67 K/uL Lymphocytes # (Auto) 0.48 K/uL Monocytes # (Auto) 1.44 K/uL Eosinophils # (Auto) 0.00 K/uL Basophils # (Auto) 0.02 K/uL RDW Standard Deviation 52.5 fL RDW Coefficient of Variation 17.1 % Immature Granulocyte % (Auto) 0.4 % Immature Granulocyte # (Auto) 0.11 K/uL Red Blood Cell Morphology Unremarkable Erythrocyte Sedimentation Rate 46 mm/hr Prothrombin Time 34.6 SECONDS Prothromb Time International Ratio 3.1 Activated Partial Thromboplast Time 39.9 SECONDS Partial Thromboplastin Ratio 1.5 Sodium Level 135 mmol/L Potassium Level 4.0 mmol/L Chloride Level 101 mmol/L Carbon Dioxide Level 27 mmol/L Anion Gap 7.0 mmol/L Blood Urea Nitrogen 24 mg/dl Creatinine 1.40 mg/dl Est Creatinine Clear Calc Drug Dose 70.1 ml/min Estimated GFR () 58.2 Estimated GFR (Non- 50.2 BUN/Creatinine Ratio 17.1 Random Glucose 113 mg/dl Calcium Level 9.2 mg/dl Total Bilirubin 0.9 mg/dl Direct Bilirubin 0.2 mg/dl Aspartate Amino Transf (AST/SGOT) 18 U/L Alanine Aminotransferase (ALT/SGPT) 23 U/L Alkaline Phosphatase 143 U/L Troponin I < 0.015 ng/ml C-Reactive Protein 6.98 mg/dl Total Protein 7.8 gm/dl Albumin 3.6 gm/dl Bedside Lactic Acid Venous 2.58 mmol/L Urine Color YELLOW Urine Appearance CLEAR Urine pH 5.5 Urine Specific [place] 1.012 Urine Protein NEG Urine Glucose (UA) NEG Urine Ketones NEG Urine Occult Blood 2+ Urine Nitrite NEG Urine Bilirubin NEG Urine Urobilinogen NEG Urine Leukocyte Esterase NEG Urine WBC (Auto) 0 /hpf Urine RBC (Auto) 5-10 /hpf Urine Hyaline Casts (Auto) 0 /lpf Urine Epithelial Cells (Auto) 0-5 /lpf Urine Bacteria (Auto) NEG Lactic Acid Level 2.1 mmol/L Test 06/27/17 05:55 White Blood Count 14.00 K/uL Red Blood Count 4.08 M/uL Hemoglobin 11.1 g/dL Hematocrit 33.9 % Mean Corpuscular Volume 83.1 fL Mean Corpuscular Hemoglobin 27.2 pg Mean Corpuscular Hemoglobin Concent 32.7 g/dl RDW Standard Deviation 52.8 fL RDW Coefficient of Variation 17.2 % Platelet Count 159 K/uL Mean Platelet Volume 10.4 fL Prothrombin Time 22.1 SECONDS Prothromb Time International Ratio 2.0 Sodium Level 135 mmol/L Potassium Level 3.8 mmol/L Chloride Level 103 mmol/L Carbon Dioxide Level 27 mmol/L Anion Gap 5.0 mmol/L Blood Urea Nitrogen 21 mg/dl Creatinine 1.20 mg/dl Est Creatinine Clear Calc Drug Dose 81.8 ml/min Estimated GFR () 70.1 Estimated GFR (Non- 60.5 BUN/Creatinine Ratio 17.3 Random Glucose 122 mg/dl Lactic Acid Level 1.3 mmol/L Calcium Level 8.4 mg/dl Thyroid Stimulating Hormone (TSH) 0.438 uIu/ml Assessment and Plan This is a 71 year old male with a PMH of morbid obesity, CAD s/p stents, atrial fibrillation on long-term anticoagulation, recurrent cellulitis, HTN, HLD, gout - presents with worsening RLE pain, redness, swelling Sepsis secondary to Recurrent Cellulitis 06/27 improving; WBC down, no fevers, hemodynamically stable continue IV Vanco for 1-2 more days, then switch to PO abx. lactic acidosis resolved will stop IVFs 06/26 patient has had cellulitis about 7-8 times R LE with warmth, redness, swelling will humberto area start Vancomycin blood cultures pending no open wounds for cultures hold Lasix due to dehydration WBC elevated >20k, lactic acid >2, tachycardia - meets sepsis criteria given fluid bolus in the ER, will recheck lactic acid, hold further IVFs to prevent overload A. Fib with RVR 06/27 A. fib, with improved rates continue metoprolol 50mg BID restart Coumadin with goal INR of 2-3 06/26 new onset? patient unaware of this diagnosis in the past he has been on Coumadin; states he thinks it was for his heart attacks HIM information request for further information will continue metoprolol; his HRs are improving with fluid bolus Metoprolol 50mg BID hold Coumadin for one day; INR slightly elevated at 3.1 monitor in tele recheck EKG in AM Shortness of Breath, Orthopnea patient states he is short of breath, chronically no tobacco use, no COPD noted possibly related to obesity hypoventilation will check an echo hold IVFs O2 nocturnally for sleep give one dose of Lasix CAD s/p stents, unsure if three or [address], no chest pain, initial enzymes negative, no acute issues continue aspirin, statin, b-heike DVT ppx Coumadin FULL CODE
[2017-06-27] MEDS ORDERED: FUROSEMIDE 40 MG TAB PO ONE (09:45)
[2017-06-27] MEDS: VANCOMYCIN INJ 2,250 MG in SODIUM CHLORIDE 0.9% 500ML 500 ML IV SCH (10:35)
[2017-06-27 12:19] VITALS: BP_SYST 116; BP_SYST 82; BP_DIAS 64; BP_DIAS 72; PULSE 82; TEMP 37.1; O2SAT 91
--- NOTE | 2017-06-27 13:30 | ECHOCARDIOGRAM REPORT ---
*NOTICE TO RECEIVING DEMOCRAT AGENCY This information is strictly Confidential and protected under [place] law. [place] law prohibits you from making any further disclosure of this information unless further disclosure is expressly permitted by the written consent of the person to whom it pertains or is authorized by law. A general authorization for the release of medical or other information is not sufficient for this purpose. Hospital accepts no responsibility if the information is made available to any other person, INCLUDING THE PATIENT. Interpretation Summary * Name: YUNG PAUL Study Date: 06/27/2017 10:15 AM BP: 115/78 mmHg * Patient Location: .2E\S\E204\S\1 HR: 79 * : 1945 (M/d/yyy) Gender: Male Height: 69 in * Age: 71 yrs Ethnicity: [place] Weight: 330 lb * Ordering Physician: Tono Lopez * Performed By: Jessica Herring * * Reason For Study: A-FIB * BSA: 2.6 m2 * The study was technically difficult. * There is no comparison study available. * -- Conclusions -- * Ejection Fraction = 65-70%. * The basal posterior wall is hypokinetic, otherwise, normal motion. * There is mild concentric left ventricular hypertrophy. * The left atrium is severely dilated. * There is mild mitral regurgitation. * There is moderate mitral annular calcification. Procedure Details * A complete two-dimensional transthoracic echocardiogram was performed (2D, M-mode, Doppler and color flow Doppler). * A contrast injection of Definity was performed to improve assessment of LV function. * Contrast was injected into an intravenous site in the right arm. * One vial of Definity ultrasound contrast was diluted in normal saline to a total volume of 10 ml. A total of '2' ml of solution was administered during imaging. * Lot # [id number] of Definity utilized for procedure. * Expiration date 06/25. * The attending nurse who injected the contrast agent was VIKTOR RODRIGUEZ RN. Left Ventricle * The left ventricle is normal in size. * There is no thrombus. * There is mild concentric left ventricular hypertrophy. * Ejection Fraction = 65-70%. * Left ventricular systolic function is normal. * The basal posterior wall is hypokinetic, otherwise, normal motion. Right Ventricle * The right ventricle is normal size. * The right ventricular systolic function is normal as assessed by tricuspid annular plane systolic excursion (TAPSE) (normal >1.5 cm). Atria * The left atrium is severely dilated. * Right atrial size is normal. * There is no evidence of atrial septal defect, but resolution does not allow assessment for a patent foramen ovale. Mitral Valve * There is moderate mitral annular calcification. * There is no mitral valve stenosis. * There is mild mitral regurgitation. Tricuspid Valve * The tricuspid valve is normal. * There is no tricuspid stenosis. * There is trace tricuspid regurgitation. Aortic Valve * The aortic valve is not well visualized. * Aortic stenosis is absent. * There is no significant aortic regurgitation. Pulmonic Valve * The pulmonary valve is not well seen, but the Doppler examination is normal without significant regurgitation or stenosis. Great Vessels * The aortic root is normal size. Pericardium/Pleural * There is no pericardial effusion. Great Vessels * Normal inferior vena cava diameter and respiratory variation suggests normal central venous pressure. MMode 2D Measurements and Calculations IVSd 1.3 cm IVSs 2.0 cm LVIDd 5.1 cm LVIDs 3.2 cm LVPWd 1.1 cm LVPWs 1.4 cm IVS/LVPW 1.1 FS 37.1 % EDV(Teich) 126.6 ml ESV(Teich) 42.2 ml EF(Teich) 66.7 % EDV(cubed) 136.6 ml ESV(cubed) 34.0 ml EF(cubed) 75.1 % % IVS thick 54.5 % % LVPW thick 21.7 % LV mass(C)d 246.8 grams LV mass(C)dI 96.6 grams/m\S\2 LV mass(C)s 210.7 grams LV mass(C)sI 82.4 grams/m\S\2 SV(Teich) 84.4 ml SI(Teich) 33.0 ml/m\S\2 SV(cubed) 102.6 ml SI(cubed) 40.1 ml/m\S\2 ACS 1.8 cm LA dimension 5.1 cm asc Aorta Diam 3.1 cm LVOT diam 2.1 cm LVOT area 3.6 cm\S\2 LVAd ap4 30.9 cm\S\2 LVLd ap4 8.6 cm EDV(MOD-sp4) 90.1 ml EDV(sp4-el) 93.8 ml LVAs ap4 15.5 cm\S\2 LVLs ap4 7.1 cm ESV(MOD-sp4) 28.8 ml ESV(sp4-el) 28.6 ml EF(MOD-sp4) 68.1 % EF(sp4-el) 69.5 % LVAd ap2 36.8 cm\S\2 LVLd ap2 8.5 cm EDV(MOD-sp2) 131.8 ml EDV(sp2-el) 135.5 ml LVAs ap2 20.3 cm\S\2 LVLs ap2 7.8 cm ESV(MOD-sp2) 44.3 ml ESV(sp2-el) 44.4 ml EF(MOD-sp2) 66.4 % EF(sp2-el) 67.2 % LVLd %diff -1.74 % EDV(MOD-bp) 109.5 ml LVLs %diff 9.7 % ESV(MOD-bp) 37.0 ml EF(MOD-bp) 66.2 % SV(MOD-sp4) 61.3 ml SI(MOD-sp4) 24.0 ml/m\S\2 SV(MOD-sp2) 87.5 ml SI(MOD-sp2) 34.3 ml/m\S\2 SV(MOD-bp) 72.5 ml SI(MOD-bp) 28.4 ml/m\S\2 SV(sp4-el) 65.2 ml SI(sp4-el) 25.5 ml/m\S\2 SV(sp2-el) 91.1 ml SI(sp2-el) 35.7 ml/m\S\2 Doppler Measurements and Calculations MV E max rich 132.4 cm/sec MV dec time 0.23 sec Ao V2 max 106.8 cm/sec Ao max PG 4.6 mmHg Ao max PG (full) 1.1 mmHg ASHANTI(V,A) 3.1 cm\S\2 ASHANTI(V,D) 3.1 cm\S\2 LV V1 max PG 3.5 mmHg LV V1 max 93.6 cm/sec MR max rich 386.1 cm/sec MR max PG 59.6 mmHg PA V2 max 70.1 cm/sec PA max PG 2.0 mmHg TR max rich 235.9 cm/sec
[2017-06-27 15:39] VITALS: BP_SYST 85; BP_SYST 98; BP_DIAS 60; BP_DIAS 65; PULSE 55; TEMP 36.7; O2SAT 93
[2017-06-27] MEDS: WARFARIN SOD 5 MG TAB PO SCH (16:55)
[2017-06-27 19:40] VITALS: BP 122/77; PULSE 86; TEMP 36.5; O2SAT 95
[2017-06-28] VITALS (7 sets, daily range): BP systolic 109–132; BP diastolic 67–90; PULSE 70–85; TEMP 36.4–36.8; O2SAT 94–99
[2017-06-28] MEDS: VANCOMYCIN INJ 2,250 MG in SODIUM CHLORIDE 0.9% 500ML 500 ML IV SCH ×2 (00:11→13:58)
[2017-06-28 06:18] LABS: HEMATOCRIT 36.1 % (42-52); MEAN CELL VOLUME 84.3 fL (80-100); MEAN CORPUSCULAR HEMOGLOBIN 26.9 pg (25-34); MEAN CORPUSCULAR HGB CONC 31.9 g/dl (32-36); MEAN PLATELET VOLUME 11.2 fL (7.4-10.4); PLATELET COUNT 181 K/uL (130-400); RED BLOOD COUNT 4.28 M/uL (4.7-6.1); WHITE BLOOD COUNT 8.06 K/uL (4.8-10.8)
[2017-06-28 06:34] LABS: INR 1.6 (0.9-1.1); PROTHROMBIN TIME (PATIENT) 17.5 SECONDS (9.0-12.0)
[2017-06-28 06:44] LABS: BUN/CREATININE RATIO 16.7 (10-20); CALCIUM 8.7 mg/dl (8.5-10.1); CREATININE 1.1 mg/dl (0.60-1.40)
[2017-06-28 07:21] LABS: ESTIMATED AVERAGE GLUCOSE 134 mg/dl; HA1C FLAG Normal (Normal)
[2017-06-28] MEDS: ATORVASTATIN 40 MG TAB PO SCH (07:58)
[2017-06-28] MEDS: THIAMINE HCL 100 MG TAB PO SCH (07:58)
[2017-06-28] MEDS: METOPROLOL TARTRATE 50 MG TAB PO SCH ×2 (07:58→20:38)
[2017-06-28] MEDS: ASPIRIN 81 MG ECTAB PO SCH (07:58)
[2017-06-28] MEDS: PANTOprazole SOD 40 MG TAB PO SCH (07:58)
[2017-06-28] MEDS: LISINOPRIL 10 MG TAB PO SCH (07:59)
--- NOTE | 2017-06-28 08:36 | Progress Note ---
Subjective Date of Service: Jun 28, 2017. Subjective Pt evaluation today including: conversation w/ patient, physical exam, lab review, review of studies, review of inpatient medication list Saw/examined the patient in room 204 Doing well; was short of breath last evening; placed on supplemental O2 and felt slightly better R LE is looking better; and patient states it is not bothering him as much No fevers/chills No chest pain or palpitations Problem List Medical Problems: (1) Atrial fibrillation Status: Acute (2) Cellulitis of right lower extremity Status: Acute Review of Systems Constitutional: No fever, No chills Respiratory: + shortness of breath, No cough, No sputum, No wheezing, No hemoptysis Cardiac: No chest pain, No palpitations Abdomen: No pain, No nausea, No vomiting, No diarrhea Musculoskeletal: + muscle pain (R LE, improving) Medications Current Inpatient Medications Medications (Trade) Dose Ordered Sig/Alexa Route Start Time Stop Time Status Last Admin Dose Admin Vancomycin HCl 2250 mg/Sodium Chloride 545 ml @ 200 mls/hr Q14H IV 06/27/17 10:00 07/07/17 09:59 06/28/17 00:11 200 MLS/HR Acetaminophen (Tylenol Tab) 650 mg Q4H PRN PO 06/26/17 17:45 07/26/17 17:44 Al Hydrox/Mg Hydrox/Simethicone (Maalox Max Susp) 15 ml Q4H PRN PO 06/26/17 17:45 07/26/17 17:44 Magnesium Hydroxide (Milk Of Magnesia Susp) 30 ml Q12H PRN PO 06/26/17 17:45 07/26/17 17:44 Ondansetron HCl (Zofran Inj) 4 mg Q6H PRN IV 06/26/17 17:45 07/26/17 17:44 Nitroglycerin (Nitrostat Tab) 0.4 mg UD PRN SL 06/26/17 17:45 07/26/17 17:44 Polyethylene (Miralax Powder Packet) 17 gm DAILY PRN PO 06/26/17 17:45 07/26/17 17:44 Aspirin (Ecotrin Tab) 81 mg QAM PO 06/27/17 09:00 07/27/17 08:59 06/28/17 07:58 81 MG Atorvastatin Calcium (Lipitor Tab) 40 mg QAM PO 06/27/17 09:00 07/27/17 08:59 06/28/17 07:58 40 MG Lisinopril (Zestril Tab) 10 mg QAM PO 06/27/17 09:00 07/27/17 08:59 06/28/17 07:59 10 MG Metoprolol Tartrate (Lopressor Tab) 50 mg BID PO 06/26/17 21:00 07/26/17 20:59 06/28/17 07:58 50 MG Pantoprazole Sodium (Protonix Tab) 40 mg QAM PO 06/27/17 09:00 07/27/17 08:59 06/28/17 07:58 40 MG Thiamine HCl (Vitamin B-1 Tab) 100 mg QAM PO 06/27/17 09:00 07/27/17 08:59 06/28/17 07:58 100 MG Vancomycin HCl (Consult) 1 ea UD PRN N/A 06/26/17 20:30 07/26/17 20:29 Warfarin Sodium (Coumadin Tab) 5 mg DAILY@16 PO 06/27/17 16:00 07/27/17 15:59 06/27/17 16:55 5 MG Enoxaparin Sodium (Lovenox Inj) 30 mg QAM SQ 06/28/17 09:00 07/28/17 08:59 UNV Warfarin Sodium (Coumadin Tab) 1 mg ONE@1600 ONCE PO 06/28/17 16:00 06/28/17 16:01 UNV Objective Vital Signs Date Time Temp Pulse Resp B/P (MAP) Pulse Ox O2 Delivery O2 Flow Rate FiO2 06/28/17 08:01 36.7 82 22 126/90 (102) 96 Room Air 06/28/17 04:00 Nasal Cannula 6.0 06/28/17 03:57 36.6 85 18 129/76 (93) 99 Nasal Cannula 6.0 06/28/17 00:00 36.6 81 20 132/77 (95) 99 Nasal Cannula 6.0 06/27/17 23:59 Nasal Cannula 6.0 06/27/17 20:00 Room Air 06/27/17 19:40 36.5 86 18 122/77 (92) 95 Room Air 06/27/17 16:00 Room Air 06/27/17 15:39 36.7 55 18 98/60 (73) 93 Room Air 06/27/17 12:19 37.1 82 18 82/64 (70) 91 Room Air 116/72 (87) 06/27/17 12:00 Room Air Physical Exam General Appearance: no apparent distress, + obese Respiratory/Chest: no respiratory distress, no accessory muscle use, + decreased breath sounds Cardiovascular: no murmur, + irregularly irregular Extremities: + pertinent finding (R LE cellulitic changes, improving, erythema subsided, tenderness improving) Laboratory Results Last 24 Hours Test 06/28/17 05:30 White Blood Count 8.06 K/uL Red Blood Count 4.28 M/uL Hemoglobin 11.5 g/dL Hematocrit 36.1 % Mean Corpuscular Volume 84.3 fL Mean Corpuscular Hemoglobin 26.9 pg Mean Corpuscular Hemoglobin Concent 31.9 g/dl RDW Standard Deviation 53.0 fL RDW Coefficient of Variation 17.4 % Platelet Count 181 K/uL Mean Platelet Volume 11.2 fL Prothrombin Time 17.5 SECONDS Prothromb Time International Ratio 1.6 Sodium Level 139 mmol/L Potassium Level 4.0 mmol/L Chloride Level 107 mmol/L Carbon Dioxide Level 29 mmol/L Anion Gap 3.0 mmol/L Blood Urea Nitrogen 18 mg/dl Creatinine 1.10 mg/dl Est Creatinine Clear Calc Drug Dose 89.2 ml/min Estimated GFR () 77.9 Estimated GFR (Non- 67.2 BUN/Creatinine Ratio 16.7 Random Glucose 110 mg/dl Calcium Level 8.7 mg/dl Assessment and Plan This is a 71 year old male with a PMH of morbid obesity, CAD s/p stents, atrial fibrillation on long-term anticoagulation, recurrent cellulitis, HTN, HLD, gout - presents with worsening RLE pain, redness, swelling Sepsis secondary to Recurrent Cellulitis 06/28 leukocytosis resolved afebrile, hemodynamically stable continue Vancomycin x1 more day, before switching to PO transfer to med/surg 06/27 improving; WBC down, no fevers, hemodynamically stable continue IV Vanco for 1-2 more days, then switch to PO abx. lactic acidosis resolved will stop IVFs 06/26 patient has had cellulitis about 7-8 times R LE with warmth, redness, swelling will humberto area start Vancomycin blood cultures pending no open wounds for cultures hold Lasix due to dehydration WBC elevated >20k, lactic acid >2, tachycardia - meets sepsis criteria given fluid bolus in the ER, will recheck lactic acid, hold further IVFs to prevent overload A. Fib with RVR - resolved 06/28 continue metoprolol; rates controlled give an extra 1mg of Coumadin for INR goal of 2-3 06/27 A. fib, with improved rates continue metoprolol 50mg BID restart Coumadin with goal INR of 2-3 06/26 new onset? patient unaware of this diagnosis in the past he has been on Coumadin; states he thinks it was for his heart attacks HIM information request for further information will continue metoprolol; his HRs are improving with fluid bolus Metoprolol 50mg BID hold Coumadin for one day; INR slightly elevated at 3.1 monitor in tele recheck EKG in AM Shortness of Breath, Orthopnea patient states he is short of breath, chronically no tobacco use, no COPD noted possibly related to obesity hypoventilation will check an echo hold IVFs O2 nocturnally for sleep give one dose of Lasix CAD s/p stents, unsure if three or five st[address], no chest pain, initial enzymes negative, no acute issues continue aspirin, statin, b-heike DVT ppx Coumadin FULL CODE
[2017-06-28] MEDS: ENOXAPARIN 30 MG/0.3 ML SYR SQ SCH (09:15)
[2017-06-28] MEDS ORDERED: VANCOMYCIN TROUGH SCH (14:00)
--- NOTE | 2017-06-28 14:55 | Pharmacy Progress Note ---
Pharmacy Abx Dose Short Note Date of Service Jun 28, 2017. Assessment & Plan Assessment 71 year old male receiving VANCOMYCIN IV for treatment of RLE cellulitis Day # 3 of antimicrobial therapy. Renal fxn stable and improved since admission WBC trending down, currently afebrile Cx's negative to date Plan Vancomycin * Trough level of 18.6 mcg/mL is therapeutic. Prior doses were hung at appropriate times. Level was drawn at the appropriate time however was drawn prior to achieving steady-state, therefore will repeat level in 24 hrs after 2 more maintenance doses. Given his BMI he is at risk for drug accumulation and I don't doubt we may need to reduce his dose in the near future. * Continue dose of 2250 mg IV every 14 hours * Goal trough level for sepsis : 15 to 20 mcg/mL * Trough or random level ordered for: 06/29/17 Pharmacy will continue to follow and will adjust dose/frequency as necessary. Thank you.
[2017-06-28] MEDS ORDERED: WARFARIN SOD 1 MG TAB PO ONE (16:00)
[2017-06-28] MEDS: WARFARIN SOD 5 MG TAB PO SCH (16:16)
[2017-06-29] VITALS: BP 103/69; PULSE 80; TEMP 36.6; O2SAT 99
[2017-06-29] MEDS: VANCOMYCIN INJ 2,250 MG in SODIUM CHLORIDE 0.9% 500ML 500 ML IV SCH (04:07)
[2017-06-29 06:39] LABS: HEMATOCRIT 33.3 % (42-52); MEAN CELL VOLUME 83.5 fL (80-100); MEAN CORPUSCULAR HEMOGLOBIN 27.1 pg (25-34); MEAN CORPUSCULAR HGB CONC 32.4 g/dl (32-36); MEAN PLATELET VOLUME 10.6 fL (7.4-10.4); PLATELET COUNT 184 K/uL (130-400); RED BLOOD COUNT 3.99 M/uL (4.7-6.1); WHITE BLOOD COUNT 7.02 K/uL (4.8-10.8)
[2017-06-29 06:49] LABS: INR 1.9 (0.9-1.1); PROTHROMBIN TIME (PATIENT) 20.7 SECONDS (9.0-12.0)
[2017-06-29 06:55] VITALS: BP 109/74; PULSE 85; TEMP 36.2; O2SAT 96
[2017-06-29 07:21] LABS: BUN/CREATININE RATIO 14.7 (10-20); CALCIUM 8.5 mg/dl (8.5-10.1); CREATININE 1.1 mg/dl (0.60-1.40); POTASSIUM 3.9 mmol/L (3.5-5.1)
[2017-06-29] MEDS: ENOXAPARIN 30 MG/0.3 ML SYR SQ SCH (07:54)
[2017-06-29] MEDS: ASPIRIN 81 MG ECTAB PO SCH (07:55)
[2017-06-29] MEDS: ATORVASTATIN 40 MG TAB PO SCH (07:55)
[2017-06-29] MEDS: PANTOprazole SOD 40 MG TAB PO SCH (07:55)
[2017-06-29] MEDS: METOPROLOL TARTRATE 50 MG TAB PO SCH (07:55)
[2017-06-29] MEDS: THIAMINE HCL 100 MG TAB PO SCH (07:55)
[2017-06-29] MEDS: LISINOPRIL 10 MG TAB PO SCH (07:55)
--- NOTE | 2017-06-29 10:57 | Progress Note ---
Subjective Date of Service: Jun 29, 2017. Subjective Pt evaluation today including: conversation w/ patient, physical exam, lab review, review of studies, review of inpatient medication list Saw/examined the patient in room 250 Patient is doing much better; no problems/issues to note today No fevers/chills, denies chest pain/palpitations +chronic shortness of breath Problem List Medical Problems: (1) Atrial fibrillation Status: Acute (2) Cellulitis of right lower extremity Status: Acute Review of Systems Constitutional: No fever, No chills Respiratory: No shortness of breath Cardiac: No chest pain, No palpitations Abdomen: No pain, No nausea, No vomiting, No diarrhea Medications Current Inpatient Medications Medications (Trade) Dose Ordered Sig/Alexa Route Start Time Stop Time Status Last Admin Dose Admin Vancomycin HCl 2250 mg/Sodium Chloride 545 ml @ 200 mls/hr Q14H IV 06/27/17 10:00 07/07/17 09:59 06/29/17 04:07 200 MLS/HR Acetaminophen (Tylenol Tab) 650 mg Q4H PRN PO 06/26/17 17:45 07/26/17 17:44 Al Hydrox/Mg Hydrox/Simethicone (Maalox Max Susp) 15 ml Q4H PRN PO 06/26/17 17:45 07/26/17 17:44 Magnesium Hydroxide (Milk Of Magnesia Susp) 30 ml Q12H PRN PO 06/26/17 17:45 07/26/17 17:44 Ondansetron HCl (Zofran Inj) 4 mg Q6H PRN IV 06/26/17 17:45 07/26/17 17:44 Nitroglycerin (Nitrostat Tab) 0.4 mg UD PRN SL 06/26/17 17:45 07/26/17 17:44 Polyethylene (Miralax Powder Packet) 17 gm DAILY PRN PO 06/26/17 17:45 07/26/17 17:44 Aspirin (Ecotrin Tab) 81 mg QAM PO 06/27/17 09:00 07/27/17 08:59 06/29/17 07:55 81 MG Atorvastatin Calcium (Lipitor Tab) 40 mg QAM PO 06/27/17 09:00 07/27/17 08:59 06/29/17 07:55 40 MG Lisinopril (Zestril Tab) 10 mg QAM PO 06/27/17 09:00 07/27/17 08:59 06/29/17 07:55 10 MG Metoprolol Tartrate (Lopressor Tab) 50 mg BID PO 06/26/17 21:00 07/26/17 20:59 06/29/17 07:55 50 MG Pantoprazole Sodium (Protonix Tab) 40 mg QAM PO 06/27/17 09:00 07/27/17 08:59 06/29/17 07:55 40 MG Thiamine HCl (Vitamin B-1 Tab) 100 mg QAM PO 06/27/17 09:00 07/27/17 08:59 06/29/17 07:55 100 MG Vancomycin HCl (Consult) 1 ea UD PRN N/A 06/26/17 20:30 07/26/17 20:29 Warfarin Sodium (Coumadin Tab) 5 mg DAILY@16 PO 06/27/17 16:00 07/27/17 15:59 06/28/17 16:16 5 MG Enoxaparin Sodium (Lovenox Inj) 30 mg QAM SQ 06/28/17 09:00 07/28/17 08:59 06/29/17 07:54 30 MG Objective Vital Signs Date Time Temp Pulse Resp B/P (MAP) Pulse Ox O2 Delivery O2 Flow Rate FiO2 06/29/17 08:00 Room Air 06/29/17 06:55 36.2 85 20 109/74 (86) 96 Nasal Cannula 6.0 06/29/17 00:04 Nasal Cannula 6.0 06/29/17 00:00 36.6 80 20 103/69 (80) 99 6.0 06/28/17 15:52 94 Room Air 06/28/17 15:32 36.8 70 18 113/77 (89) 94 Room Air Physical Exam General Appearance: no apparent distress, + obese Respiratory/Chest: lungs clear, normal breath sounds, no respiratory distress, no accessory muscle use Cardiovascular: no edema, no murmur, + irregularly irregular Extremities: + pertinent finding (erythema improving, R LE is less tender) Neurologic/Psychiatric: no motor/sensory deficits, alert, normal mood/affect Laboratory Results Last 24 Hours Test 06/28/17 13:53 06/29/17 06:07 Vancomycin Level Trough 18.6 mcg/ml White Blood Count 7.02 K/uL Red Blood Count 3.99 M/uL Hemoglobin 10.8 g/dL Hematocrit 33.3 % Mean Corpuscular Volume 83.5 fL Mean Corpuscular Hemoglobin 27.1 pg Mean Corpuscular Hemoglobin Concent 32.4 g/dl RDW Standard Deviation 52.2 fL RDW Coefficient of Variation 17.0 % Platelet Count 184 K/uL Mean Platelet Volume 10.6 fL Prothrombin Time 20.7 SECONDS Prothromb Time International Ratio 1.9 Sodium Level 140 mmol/L Potassium Level 3.9 mmol/L Chloride Level 109 mmol/L Carbon Dioxide Level 25 mmol/L Anion Gap 6.0 mmol/L Blood Urea Nitrogen 16 mg/dl Creatinine 1.10 mg/dl Est Creatinine Clear Calc Drug Dose 89.2 ml/min Estimated GFR () 77.9 Estimated GFR (Non- 67.2 BUN/Creatinine Ratio 14.7 Random Glucose 100 mg/dl Calcium Level 8.5 mg/dl Assessment and Plan This is a 71 year old male with a PMH of morbid obesity, CAD s/p stents, atrial fibrillation on long-term anticoagulation, recurrent cellulitis, HTN, HLD, gout - presents with worsening RLE pain, redness, swelling Sepsis - resolved secondary to Recurrent Cellulitis 06/29 patient is doing well cellulitis improving will switch Vancomycin to Keflex on discharge 06/28 leukocytosis resolved afebrile, hemodynamically stable continue Vancomycin x1 more day, before switching to PO transfer to med/surg 06/27 improving; WBC down, no fevers, hemodynamically stable continue IV Vanco for 1-2 more days, then switch to PO abx. lactic acidosis resolved will stop IVFs 06/26 patient has had cellulitis about 7-8 times R LE with warmth, redness, swelling will humberto area start Vancomycin blood cultures pending no open wounds for cultures hold Lasix due to dehydration WBC elevated >20k, lactic acid >2, tachycardia - meets sepsis criteria given fluid bolus in the ER, will recheck lactic acid, hold further IVFs to prevent overload A. Fib with RVR - resolved 06/29 will continue Metoprolol and Coumadin 06/28 continue metoprolol; rates controlled give an extra 1mg of Coumadin for INR goal of 2-3 06/27 A. fib, with improved rates continue metoprolol 50mg BID restart Coumadin with goal INR of 2-3 06/26 new onset? patient unaware of this diagnosis in the past he has been on Coumadin; states he thinks it was for his heart attacks HIM information request for further information will continue metoprolol; his HRs are improving with fluid bolus Metoprolol 50mg BID hold Coumadin for one day; INR slightly elevated at 3.1 monitor in tele recheck EKG in AM Shortness of Breath, Orthopnea patient states he is short of breath, chronically no tobacco use, no COPD noted possibly related to obesity hypoventilation will check an echo hold IVFs O2 nocturnally for sleep give one dose of Lasix CAD s/p stents, unsure if three or [address], no chest pain, initial enzymes negative, no acute issues continue aspirin, statin, b-heike DVT ppx Coumadin FULL CODE
[2017-06-29] MEDS ORDERED: CEPH500C2 PO (11:04)
--- NOTE | 2017-06-29 11:07 | Discharge Instructions ---
Discharge Instructions Date of Service Jun 29, 2017. Admission Reason for Admission: Atrial Fibrillation With Rvr, Cellulitis Discharge Discharge Diagnosis / Problem: Cellulitis, A. Fib with RVR - resolved Discharge Goals Goal(s): Decrease discomfort, Improve function, Diagnostic testing, Therapeutic intervention Activity Recommendations Activity Limitations: resume your previous activity . Instructions / Follow-Up Instructions / Follow-Up Please follow-up with your primary care physician You will be on Keflex, 500mg four times a day (antibiotic) Have your INR checked in 3-4 days Current Hospital Diet Patient's current hospital diet: AHA Diet (Heart Healthy) Discharge Diet Recommended Diet: AHA Diet (Heart Healthy) Pending Studies Studies pending at discharge: no Laboratory Results Hemoglobin A1c Test 06/26/17 14:35 Range/Units Estimated Average Glucose 134 mg/dl Hemoglobin A1c 6.3 H 4.5-5.6 % Medical Emergencies . Who to Call and When: Medical Emergencies: If at any time you feel your situation is an emergency, please call 911 immediately. . Non-Emergent Contact Non-Emergency issues call your: Primary Care Provider . . "Provider Documentation" section prepared by Tono Lopez. . VTE Core Measure Inpt VTE Proph given/why not?: Warfarin (Coumadin)
--- NOTE | 2017-06-29 11:08 | Discharge Summary ---
Discharge Summary Date of Service Jun 29, 2017. Discharge Summary Admission Date: Jun 26, 2017 at 17:42 Discharge Date: Jun 29, 2017 Discharge Disposition: Home Principal Diagnosis: Recurrent Cellulitis A. fib with RVR Medication Reconciliation New Medications: Cephalexin Monohydrate (Keflex) 500 Mg Cap 500 MG PO QID for 5 Days, #20 CAP Continued Medications: Allopurinol (Zyloprim) 100 Mg Tab 100 MG PO QAM, TAB Aspirin (Aspirin Ec) 81 Mg Tab 81 MG PO QAM Atorvastatin (Lipitor) 40 Mg Tab 40 MG PO QAM, TAB Colchicine (Colcrys) 0.6 Mg Tab 0.6 MG PO QAM Furosemide (Lasix) 40 Mg Tab 40 MG PO, TAB Lisinopril (Zestril) 5 Mg Tab 10 MG PO QAM, TAB Metoprolol Tartrate (Lopressor) (Lopressor) 25 Mg Tab 50 MG PO BID for 30 Days, #120 TAB Nitroglycerin (Nitrostat) 0.4 Mg/1 Tab Subl 1 TAB SL UD, TAB Pantoprazole (Protonix) 40 Mg Tab 40 MG PO QAM, #30 TAB Probiotic Product (Probiotic) 1 Cap Cap 4 TAB PO QAM Thiamine Hcl (Vitamin B-1) 100 Mg Tab 100 MG PO QAM, TAB Warfarin Sod (Coumadin) 5 Mg Tab 5 MG Admission Information HPI (per Admitting provider): This is a 71 year old male with a PMH of morbid obesity, CAD s/p stents, atrial fibrillation on long-term anticoagulation, recurrent cellulitis, HTN, HLD, gout - presents with worsening RLE pain, redness, swelling. States he was at the [facility] today; and was in his usual state of health; he noted some swelling in his R lower extremity - as per , he had a cut in the past, which had been healing. He has had recurrent cellulitis in the past and he knew that this was very similar to those episodes. He presented here and had significant erythema, redness, warmth to touch. Noted to have A. fib on monitor - states he does not recall being told he had this, but he is on Coumadin. States he's had stents placed in the past ( states he had three, patient states he's had five stents). +fevers at the [facility] tent. Was given some fluids and Rocephin in the ER. Physical Exam (per Admitting): General Appearance: no apparent distress, + obese (morbid obesity) Head: normocephalic, atraumatic Eyes: normal inspection Respiratory/Chest: chest non-tender, lungs clear, normal breath sounds, no respiratory distress, no accessory muscle use Cardiovascular: no murmur, + irregularly irregular Abdomen/GI: normal bowel sounds, non tender, soft, + pertinent finding (+ obese) Extremities/Musculoskelatal: + swelling, + pertinent finding (swelling, erythematous, edematous, RLE; warm to touch, tender to touch) Neurologic/Psych: no motor/sensory deficits, alert, normal mood/affect Hospital Course This is a 71 year old male with a PMH of morbid obesity, CAD s/p stents, atrial fibrillation on long-term anticoagulation, recurrent cellulitis, HTN, HLD, gout - presents with worsening RLE pain, redness, swelling Sepsis - resolved secondary to Recurrent Cellulitis 06/29 patient is doing well cellulitis improving will switch Vancomycin to Keflex on discharge 06/28 leukocytosis resolved afebrile, hemodynamically stable continue Vancomycin x1 more day, before switching to PO transfer to med/surg 06/27 improving; WBC down, no fevers, hemodynamically stable continue IV Vanco for 1-2 more days, then switch to PO abx. lactic acidosis resolved will stop IVFs 06/26 patient has had cellulitis about 7-8 times R LE with warmth, redness, swelling will humberto area start Vancomycin blood cultures pending no open wounds for cultures hold Lasix due to dehydration WBC elevated >20k, lactic acid >2, tachycardia - meets sepsis criteria given fluid bolus in the ER, will recheck lactic acid, hold further IVFs to prevent overload A. Fib with RVR - resolved 06/29 will continue Metoprolol and Coumadin 06/28 continue metoprolol; rates controlled give an extra 1mg of Coumadin for INR goal of 2-3 06/27 A. fib, with improved rates continue metoprolol 50mg BID restart Coumadin with goal INR of 2-3 06/26 new onset? patient unaware of this diagnosis in the past he has been on Coumadin; states he thinks it was for his heart attacks HIM information request for further information will continue metoprolol; his HRs are improving with fluid bolus Metoprolol 50mg BID hold Coumadin for one day; INR slightly elevated at 3.1 monitor in tele recheck EKG in AM Shortness of Breath, Orthopnea patient states he is short of breath, chronically no tobacco use, no COPD noted possibly related to obesity hypoventilation will check an echo hold IVFs O2 nocturnally for sleep give one dose of Lasix CAD s/p stents, unsure if three or [address], no chest pain, initial enzymes negative, no acute issues continue aspirin, statin, b-heike DVT ppx Coumadin FULL CODE Total time spent on discharge = 40 minutes This includes examination of the patient, discharge planning, medication reconciliation, and communication with other providers. Discharge Instructions Please follow-up with your primary care physician You will be on Keflex, 500mg four times a day (antibiotic) Have your INR checked in 3-4 days
[2017-06-29 11:27] VITALS: BP 109/74; PULSE 85; TEMP 36.2; O2SAT 96
[2017-06-29] MEDS ORDERED: VANCOMYCIN TROUGH SCH (17:30)
== END 2017-06-29 11:20 | disposition home or self-care (01) | DRG 872 ==
LOC: C.EDB 13:52 → C.2E 17:42 → ENRESERV 17:52 → C.MS2W 06-28 09:43
PROVIDERS: ADMIT Family Medicine; ATTEND Family Medicine
DX: A41.9 Sepsis, unspecified organism (principal); L03.115 Cellulitis of right lower limb; E66.2 Morbid (severe) obesity with alveolar hypoventilation; Z68.42 Body mass index [BMI] 45.0-49.9, adult; I48.91 Unspecified atrial fibrillation; I25.10 Atherosclerotic heart disease of native coronary artery without angina pectoris; I10 Essential (primary) hypertension; E78.5 Hyperlipidemia, unspecified; M10.9 Gout, unspecified; Z87.2 Personal history of diseases of the skin and subcutaneous tissue; I25.2 Old myocardial infarction; Z98.61 Coronary angioplasty status; Z79.01 Long term (current) use of anticoagulants; Z79.82 Long term (current) use of aspirin; Z79.899 Other long term (current) drug therapy; Z88.0 Allergy status to penicillin; Z88.1 Allergy status to other antibiotic agents